=== PATIENT | male | born 1985 | race Asian ===

== ENCOUNTER 2020-09-05 06:03 | Day surgery (SDC) | payer OTHER ==
[~2020-09-05] VITALS: Ht 162.6 cm; Wt 74.1 kg
[2020-09-05] MEDS ORDERED: OXYMETAZOLINE 0.05% NASAL SPRAY (AFRIN) As Ordered ONE (07:07)
[2020-09-05] MEDS ORDERED: METHYLENE BLUE 0.5% (5MG/ML) 10 ML AMP (PROVAYBLUE) As Ordered ONE (07:07)
[2020-09-05] MEDS ORDERED: LIDOCAINE W/EPINEPHRINE 1% 20ML VIAL As Ordered ONE (07:07)
[2020-09-05] MEDS ORDERED: fentaNYL 100 MCG/2 ML INJECTION (J3010) As Ordered ONE ×2 (07:13→07:57)
[2020-09-05] MEDS ORDERED: propofoL 200 MG/20 ML VIAL As Ordered ONE ×2 (07:13→08:26)
[2020-09-05] MEDS ORDERED: MIDAZOLAM INJ 2MG/2ML VIAL (J2250 PER 1MG) As Ordered ONE (07:13)
[2020-09-05] MEDS ORDERED: LIDOCAINE 2% 100MG/5ML SDV (FOR ANES.) As Ordered ONE ×2 (07:13→07:14)
[2020-09-05] MEDS ORDERED: ROCURONIUM BROMIDE 50 MG/5 ML VIAL As Ordered ONE (07:13)
[2020-09-05] MEDS ORDERED: dexameTHASONE 4 MG/ML 1ML VIAL (J1100 PER 1MG) As Ordered ONE (07:14)
[2020-09-05] MEDS ORDERED: ONDANSETRON 4MG/2ML VIAL As Ordered ONE (07:14)
[2020-09-05] MEDS ORDERED: SUGAMMADEX SODIUM 500 MG/5 ML VIAL (BRIDION) As Ordered ONE (07:16)
[2020-09-05] MEDS ORDERED: PERCOCET PO (07:44)
[2020-09-05] MEDS ORDERED: DOXY-350 PO (07:44)
[2020-09-05] MEDS ORDERED: ACETAMINOPHEN 1000MG 100ML IV BTL (OFIRMEV) (J0131 PER 10MG) As Ordered ONE (08:17)
[2020-09-05] MEDS ORDERED: HYDROMORPHONE HCL 0.5 MG/ 0.5 ML SYRINGE (J1170 PER 1) IV PRN (09:00)
[2020-09-05] MEDS ORDERED: PERCOCET 5MG/325MG TAB PO PRN ×2 (09:00)
[2020-09-05] MEDS ORDERED: ONDANSETRON 4MG/2ML VIAL IV PRN (09:00)
[2020-09-05] MEDS ORDERED: LR 1,000 ML IV SCH (09:00)
[2020-09-05 10:35] VITALS: BP 130/78
--- NOTE | 2020-09-07 13:31 | RO ---
OPERATIVE NOTE DATE OF OPERATION: 09/05/2020 PREOPERATIVE DIAGNOSIS: Deviated septum, chronic rhinitis. POSTOPERATIVE DIAGNOSIS: Deviated septum, chronic rhinitis. PROCEDURE: Septoplasty and partial reduction of inferior turbinates. SURGEON: Roberto Mata MD. 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 DESCRIPTION OF PROCEDURE: Satisfactory general endotracheal anesthesia was administered. Pharyngeal pack placed. Nose prepared for surgery by placing cotton-soaked pledgets with Afrin solution into the nasal cavity bilaterally. One percent Xylocaine with 1:100,000 epinephrine was used to inject the nasal septum and inferior turbinates. A Erik incision was made on the left side of the nose. A mucoperichondrial flap and envelope was created on the left side of the nasal septum and carried down to the junction of the bony and cartilaginous septum. This was then with an elevator and an envelope was then created on the right side of the septum. Andrade scissors was used to make a high cut in the perpendicular plate in the midportion of the vomer and a central segment of bony septum was resected. Next, with the round knife on the Oliver elevator, a strip of cartilage was resected from the floor of the nose, mobilizing the quadrilateral cartilage and creating a swinging door. Then a central segment of cartilaginous septum was resected, preserving a 1 cm dorsal and caudal strut. Double-action rongeur was used to take down deflected portions of the perpendicular plate as well. Finally, the maxillary crest spur was taken down after elevating mucoperiosteum off both sides of it with a chisel. A segment of the resected cartilage was morselized and placed back into the septal envelope. The incision was closed using an interrupted 5-0 chromic suture. Then a 4-0 plain suture was placed in a [id number] fashion through the two leaves of the mucoperichondrium to appose them. Next the turbinate surgery was done. He had markedly hypertrophic turbinates. They were medially infractured and using the turbinate Coblator probe two parallel passes of the probe were made with 10 second coblation times for each of the set points on the probe. Finally suction cautery was used to coagulate the posterior inferior tip of the inferior turbinate. A #15 blade was used to make an incision on the anterior tip of the inferior turbinate. At completion of the surgery Michael splints were placed in nose and sewn to the columella with 2-0 Prolene suture. The pharyngeal pack was removed, throat suctioned. The patient was awakened and extubated. Sent to recovery in satisfactory condition. He will be discharged home on Tylox for pain and Doxycycline 100 mg b.i.d. He will be seen in the office in three days for splint removal.
== END 2020-09-05 10:35 | disposition home or self-care (01) ==
LOC: M SDC 06:03
PROVIDERS: ATTEND Specialist
DX: J34.2 Deviated nasal septum (principal); J31.0 Chronic rhinitis
CPT/HCPCS: 30140; 30520; 88300; J0131; J1100; J2250; J2405; J3010; Q9968

== ENCOUNTER → 2020-09-21 | Outpatient (CLI) | payer OTHER ==
[~2020-09-21] MED LIST: DOXY-350 PO; PERCOCET PO
--- NOTE | 2020-09-22 04:23 | REP ---
INDICATION: PAIN IN LEFT WRIST COMPARISON: None. TECHNIQUE: AP, lateral, bilateral oblique views left wrist. FINDINGS: Ulnar styloid fracture is identified but appears well corticated and may represent old injury. Clinical correlation is recommended. No prior examinations are available for comparison. The remainder of the examination appears normal. IMPRESSION: Ulnar styloid fracture of indeterminate age. Correlation is required. <Electronically signed by Candelario Mcpherson > 09/22/20 042
== END ==
LOC: M RAD 17:25
PROVIDERS: ATTEND Physician Assistant
DX: S52.612A Displaced fracture of left ulna styloid process, initial encounter for closed fracture (principal); X58.XXXA Exposure to other specified factors, initial encounter; Y92.9 Unspecified place or not applicable; Y93.9 Activity, unspecified; Y99.9 Unspecified external cause status

== ENCOUNTER 2020-09-28 12:22 | Inpatient (IN) | payer OTHER ==
[~2020-09-28] VITALS: Ht 162.6 cm; Wt 72.7 kg
[2020-09-28] MEDS ORDERED: ACET1TAB55 PO (12:44)
[2020-09-28] MEDS ORDERED: IBUP-1720 PO (12:44)
[2020-09-28] MEDS ORDERED: BENG1CRE3 TOP (12:44)
[2020-09-28 13:40] LABS: HEMATOCRIT 40.9 % (42.0-52.0); HEMOGLOBIN 13.2 g/dl (13.5-17.5); MEAN CORPUSCULAR HEMOGLOBIN 29.7 pg (27.0-33.0); MEAN CORPUSCULAR HGB CONC 32.3 g/dl (32.0-36.5); MEAN CORPUSCULAR VOLUME 91.9 fl (80.0-96.0); PLATELET COUNT, AUTOMATED 253 10^3/uL (150-450); RED BLOOD COUNT 4.45 10^6/uL (4.30-6.10); WHITE BLOOD COUNT 4.6 10^3/uL (4.0-10.0)
[2020-09-28 13:45] LABS: AMPHETAMINES LEVEL URINE NEGATIVE (NEGATIVE); BARBITURATES URINE NEGATIVE (NEGATIVE); BENZODIAZEPINES URINE NEGATIVE (NEGATIVE); CANNABINOIDS URINE NEGATIVE (NEGATIVE); COCAINE METABOLITE URINE NEGATIVE (NEGATIVE); METHADONE URINE NEGATIVE (NEGATIVE); OPIATES URINE NEGATIVE (NEGATIVE); PHENCYCLIDINE URINE NEGATIVE (NEGATIVE)
[2020-09-28 14:09] LABS: ACETAMINOPHEN LEVEL < 2.0 UG/ML (10.0-30.0); ALBUMIN 4.3 GM/DL (3.2-5.2); ALT/SGPT 33 U/L (12-78); BILIRUBIN,DIRECT 0.2 MG/DL (0.0-0.2); BILIRUBIN,TOTAL 0.8 MG/DL (0.2-1.0); BLOOD UREA NITROGEN 14 MG/DL (7-18); CALCIUM LEVEL 9.1 MG/DL (8.5-10.1); CARBON DIOXIDE LEVEL 29 MEQ/L (21-32); CHLORIDE LEVEL 106 MEQ/L (98-107); CREATININE FOR GFR 0.79 MG/DL (0.70-1.30); ETHYL ALCOHOL (ETHANOL) < 0.003 % (0.000-0.010); GLOMERULAR FILTRATION RATE > 60.0 (>60); GLUCOSE, FASTING 86 MG/DL (70-100); POTASSIUM SERUM 3.6 MEQ/L (3.5-5.1); SALICYLATE LEVEL < 1.7 MG/DL (5.0-30.0); SODIUM LEVEL 139 MEQ/L (136-145)
[2020-09-28] MEDS ORDERED: ACETAMINOPHEN TAB 650MG DOSE (2X325MG) PO PRN (18:20)
[2020-09-28] MEDS ORDERED: MAALOX 30 ML SUSP *UDC PO PRN (18:20)
[2020-09-28] MEDS ORDERED: MOM 30ML SUSPENSION UDC PO PRN (18:20)
[2020-09-28] MEDS ORDERED: LORazepam 1 MG TAB PO PRN (18:20)
[2020-09-28] MEDS ORDERED: traZODone 50 MG TAB PO PRN (18:20)
[2020-09-28 23:19] VITALS: BP 135/92
[2020-09-29 06:34] VITALS: BP 125/61
[2020-09-29] MEDS: NICOTINE 21MG/24HR 1 EA TRANSDERMAL TD SCH (09:00)
--- NOTE | 2020-09-29 09:37 | MHHPEPDOC ---
General Date Of Admission: September 28, 2020 Legal Status: 9.39 Chief Complaint My depression is getting worse and I feel totally useless, worthless and I was thinking about suicide ". History of Present Illness HISTORY OF THE PRESENT ILLNESS: Patient is a 35 -year-old , male, who [has no prior history of psychiatric treatment. 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 He was a stationed at [place] in February last year and his family joined him in March. He reports that he is been under increasing stress because of his being unhappy in this cold environment wants him to leave the service and move to the [facility]. The patient states that he likes the wants to make it a career, but at the same time he doesn't want to lose his . He is been feeling torn between and lately he has been feeling increasingly anxious with the vague fear and feeling hopeless, helpless and worthless. He has not been able to sleep very good and losing appetite.. 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 He is also losing appetite, losing concentrations and in the past month. He went to behavioral health unit and asked for help and had an appointment yesterday. When he went to the appointment and described his depression and occasional suicidal thought he was advised to come to the emergency room and was admitted on 939 status.]. The patient was fully cooperating with the interview, gave the rational presentation of his history and current problems and admits that he is feeling depressed ,at times feel like he should just go away, but knows that that he cannot leave his and his son. 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 He is tyrell for safety on the unit and is willing to cooperate with the treatment Psychiatric Review of Systems Depression (2 or more weeks): depressed mood, insomnia/hypersomnia, feelings of worthlesness, decreased energy, difficulty concentrating, appetite changes, suicidal thoughts Martha (4 or more days of): denies Psychosis: denies PTSD: denies Anxiety: situational anxiety Past Psychiatric History Previous Psychiatric Diagnosis: [None]. Previous Psychiatric Admissions: [Never been treated]. Suicide Attempts: [Never attempted suicide]. Psychiatric Follow-up: [Was recently referred to behavioral unit]. Psychiatric medications: None . Past Medical History Medical Problems Denies any major medical history Head Injury: No Seizures: No Hospitalizations: No Surgeries: No Family Medical/Psychiatric HX Medical Problems Patient to reports his mother had diabetes and hypertension Psychiatric Disorders: No Addiction: No Suicide Attemps/Completions: No Addiction History denies Social History Childhood: [Was born in [facility] had uneventful childhood ]. Abuse/Trauma:[None]. Current [place]: [place] Education: [Went to college in his country, and majored in Zoology]. Employment: Came to [facility] at age of 35 and worked at the [employer]]. Social Support: [Has a and 4-year-old. son living with him. Had to mother and father in their 50s living in [place] has 2 brothers there. Legal: [No arrest history]. Marital: for 4 years. Has a son and his wants to move out of this area and out of service . Mental Status Examination General Appearance: well groomed, appears stated age Build: average Demeanor: average Eye Contact: average Activity: average Behavior: cooperative Speech: clear, spontaneous, low in volume Mood: depressed, anxious Affect: constricted, appropriate Thought Process: logical/linear Thought Content (Delusions): none reported Thought Content (Other): none reported Thought Content (Aggressive): none reported Perception (Hallucinations): none reported Perception (Other): none reported Cognition (Impairment of): none reported Cognition(Intelligence Est.): average Oriented: Awake, Alert, Oriented times three Insight: fair Judgment: Fair Psychosis: Denies Diagnoses Adjustment disorder with mixed emotion , Rule out major depression, single episode, moderate A-FIB/CHADSVASC A-FIB History Current/History of A-Fib/PAF?: No Current PO Anticoag Therapy: No Age/Risk Factor Scoring CHADSVASC: CHADSVASC Response (Comments) Value Gender Risk Factor Male 0 Hx of CHF No 0 Hx of HTN No 0 Hx of Stroke/TIA/or VTE No 0 Hx of Diabetes No 0 Hx of Vascular Disease No 0 Total 0 Treatment Treatment ordered: NONE Assessment The patient is significantly depressed, but could be related to his conflict between his career and his marital situation. He does not appear to be acutely suicidal or but is showing significant depressive symptoms and could benefit from trial of antidepressant. It'll also be recommended that he has marital counseling after his discharge. Initial Treatment Plan 1. Patient was admitted on a 9.39 status. 2. Complete history was obtained. 3. With patients permission, family will be contacted and database will be expanded. 4. Patients medication regimen will be reviewed and changed accordingly. 5. Patient will be provided with protected environment. 6. Patient will be treated with individual, group, and milieu therapies. 7. Patient will receive supportive psych-education. 8. Discharge planning will commence immediately. 9. Outpatient follow-up treatment will be strongly recommended. 10. The initial treatment plan will focus initially on: * Depression. * Risk for suicide. ESTIMATED LENGTH OF STAY: 5-7 DAYS. TIME SPENT COUNSELING AND COORDINATING INITIAL CARE: 40 minutes. Tobacco Cessation Screen If Patient is a Smoker Nonsmoker N/A-No Antipsychotics Vital Signs Vital Signs Date Time Temp Pulse Resp B/P (MAP) Pulse Ox O2 Delivery O2 Flow Rate FiO2 09/29/20 06:34 98.0 61 16 125/61 (82) 99 Room Air Laboratory Data 24H Labs Laboratory Tests 2 09/28/20 12:51: Nucleated Red Blood Cells % (auto) 0.0, Anion Gap 4L, Glomerular Filtration Rate > 60.0, Calcium Level 9.1, Total Bilirubin 0.8, Direct Bilirubin 0.2, Aspartate Amino Transf (AST/SGOT) 19, Alanine Aminotransferase (ALT/SGPT) 33, Alkaline Phosphatase 87, Total Protein 8.0, Albumin 4.3, Albumin/Globulin Ratio 1.2, Thyroid Stimulating Hormone (TSH) 1.060, Salicylates Level < 1.7L, Acetaminophen Level < 2.0L, Ethyl Alcohol Level < 0.003 09/28/20 12:58: Urine Opiates Screen NEGATIVE, Urine Methadone Screen NEGATIVE, Urine Barbiturates Screen NEGATIVE, Urine Phencyclidine Screen NEGATIVE, Urine Amphetamines Screen NEGATIVE, Urine Benzodiazepines Screen NEGATIVE, Urine Cocaine Metabolite Screen NEGATIVE, Urine Cannabinoids Screen NEGATIVE CBC/BMP Laboratory Tests 09/28/20 12:51 Medications Scheduled PRN Acetaminophen (Acetaminophen) 325 Mg Tablet, 325 MG PO QID PRN for PAIN, (Reported) Ibuprofen (Ibuprofen) 200 Mg Tablet, 200 MG PO QID PRN for PAIN, (Reported) Methyl Salicylate/Menthol (Bengay Greaseless Cream) 57 Gm Cream..g., 1 DOSE TOP QID PRN for PAIN, (Reported) APPLY TO LEFT KNEE, LEFT ANKLE, LEFT WRIST, AND RIGHT SHOULDER Allergies Coded Allergies: No Known Allergies (Unverified , 08/30/20) FIDE BULLOCK M.D. September 29, 2020 09:37
[2020-09-29] MEDS: buPROPion (WELLBUTRIN SR) 100 MG SR TAB PO SCH ×2 (10:18→21:28)
--- NOTE | 2020-09-29 12:31 | HPEPDOC ---
[facility] Medical History & Physical Date of Admission September 28, 2020 Date of Service: September 29, 2020 History and Physical CHIEF COMPLAINT: Medical evaluation HISTORY OF PRESENT ILLNESS: Patient admitted to the inpatient mental health unit for depression and suicidal ideations. I am asked to provide a medical assessment of patient admitted to the psychiatric unit. My assessment is limited to medical problems and does not add ress any psychiatric problems which is deferred to the in-house psychiatrist. Patient has no medical complaints feels well, no complaints at this time. 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 REVIEW OF SYSTEMS: 10 point review of systems complete all negative otherwise stated in HPI HOME MEDICATIONS: Please see below. PHYSICAL EXAMINATION: Constitutional: Awake and alert, in no apparent distress ENT: Sclera are clear. Mucosa is moist. Respiratory: Lungs CTA bilaterally. No respiratory distress. Cardiovascular: RRR S1 and S2 are normal, no murmur Gastrointestinal: Abdomen is soft, non distended, non tender, BS present. Musculoskeletal: No lower extremity edema. Neurologic: No focal neurological deficit. Mental Status: A&O x3 Skin: Warm, dry LABORATORY DATA: See below. IMAGING: See chart MICROBIOLOGY: Please see below. ASSESSMENT/PLAN Medical evaluation for patient admitted to inpatient mental health unit. Patient is doing well and has no active medical problems. Follow-up with PCP after discharge. Follow-up with recommendations and management from psychiatry. A Yousef Hospitalist Vital Signs Vital Signs Date Time Temp Pulse Resp B/P (MAP) Pulse Ox O2 Delivery O2 Flow Rate FiO2 09/29/20 06:34 98.0 61 16 125/61 (82) 99 Room Air Laboratory Data Labs 24H Laboratory Tests 2 09/28/20 12:51: Nucleated Red Blood Cells % (auto) 0.0, Anion Gap 4L, Glomerular Filtration Rate > 60.0, Calcium Level 9.1, Total Bilirubin 0.8, Direct Bilirubin 0.2, Aspartate Amino Transf (AST/SGOT) 19, Alanine Aminotransferase (ALT/SGPT) 33, Alkaline Phosphatase 87, Total Protein 8.0, Albumin 4.3, Albumin/Globulin Ratio 1.2, Thyroid Stimulating Hormone (TSH) 1.060, Salicylates Level < 1.7L, Acetaminophen Level < 2.0L, Ethyl Alcohol Level < 0.003 09/28/20 12:58: Urine Opiates Screen NEGATIVE, Urine Methadone Screen NEGATIVE, Urine Barbiturates Screen NEGATIVE, Urine Phencyclidine Screen NEGATIVE, Urine Amphetamines Screen NEGATIVE, Urine Benzodiazepines Screen NEGATIVE, Urine Cocaine Metabolite Screen NEGATIVE, Urine Cannabinoids Screen NEGATIVE CBC/BMP Laboratory Tests 09/28/20 12:51 Microbiology Microbiology 09/28/20 Respiratory Virus Panel (PCR) ([facility]) - Final, Complete Home Medications Scheduled PRN Acetaminophen (Acetaminophen) 325 Mg Tablet, 325 MG PO QID PRN for PAIN Ibuprofen (Ibuprofen) 200 Mg Tablet, 200 MG PO QID PRN for PAIN Methyl Salicylate/Menthol (Bengay Greaseless Cream) 57 Gm Cream..g., 1 DOSE TOP QID PRN for PAIN APPLY TO LEFT KNEE, LEFT ANKLE, LEFT WRIST, AND RIGHT SHOULDER Allergies Coded Allergies: No Known Allergies (Unverified , 08/30/20) A-FIB/CHADSVASC A-FIB History Current/History of A-Fib/PAF?: No Age/Risk Factor Scoring CHADSVASC: CHADSVASC Response (Comments) Value Gender Risk Factor Male 0 Hx of CHF No 0 Hx of HTN No 0 Hx of Stroke/TIA/or VTE No 0 Hx of Diabetes No 0 Hx of Vascular Disease No 0 Total 0 THERON PONCE MD September 29, 2020 12:31
[2020-09-29 16:02] VITALS: BP 121/88
[2020-09-30 06:11] VITALS: BP 103/69
[2020-09-30] MEDS: buPROPion (WELLBUTRIN SR) 100 MG SR TAB PO SCH ×2 (08:53→20:26)
[2020-09-30] MEDS: NICOTINE 21MG/24HR 1 EA TRANSDERMAL TD SCH (08:54)
--- NOTE | 2020-09-30 09:07 | MHIPNPDOC ---
[facility] Progress Note Progress Note DATE OF SERVICE: 09/30/20 The patient is cooperating and tolerating the new medicine. Wellbutrin. He denies any increased anxiety and slept without much difficulty and does not feel any side effect. He reports his mood is okay and not feeling as hopeless, helpless and denies any active suicidal thoughts. 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 We will continue with is the Wellbutrin and supportive therapy and evaluate the lethality issues. HISTORY: . VITAL SIGNS: See below. NEW TEST RESULTS: . CURRENT MEDICATIONS: See below. MENTAL STATUS EXAMINATION: Patient is a 35]-year old male, who is , cooperative and in no acute distress. Speech: Is , coherent, productive. Language skills are good. Thought processes including: Relevant and organized. Thought content: . No gross psychotic symptoms and he denies any active suicidal thoughts. Abstract reasoning, and computation: Good. Description of associations : Organized. Description of abnormal or psychotic thoughts: None. Judgment: , Fair. Insight: , Fair. Orientation: Well oriented]. Recent and remote memory: Good. Attention span and concentration: Good. Language: . Fund of knowledge: Average. Mood: Moderately depressed. Affect: , Appropriate. DIAGNOSES: 1. . Major depressive episode 2. . 3. . ASSESSMENT:Cooperating and tolerating medicine does not appear to be acutely suicidal MANAGEMENT PLAN: , Supportive therapy and lethality evaluation. TIME SPENT: [[place] minutes. Vital Signs Vital Signs Date Time Temp Pulse Resp B/P (MAP) Pulse Ox O2 Delivery O2 Flow Rate FiO2 09/30/20 06:11 97.8 60 16 103/69 (80) 98 Room Air Current Medications Current Medications Medications (Trade) Dose Ordered Sig/Anca Route PRN Reason Start Time Stop Time Status Last Admin Dose Admin Acetaminophen (Tylenol Tab) 650 mg Q6HP PRN PO HEADACHE or DISCOMFORT 09/28/20 18:20 Al Hydrox/Mg Hydrox/Simethicone (Mylanta) 30 ml Q4HP PRN PO HEARTBURN/INDIGESTION 09/28/20 18:20 Bupropion HCl (Wellbutrin Sr) 100 mg BID PO 09/29/20 09:00 09/29/20 21:28 Home Med (Med Rec Complete!) ASDIRECTED XX 09/28/20 15:45 09/28/20 15:47 DC Lorazepam (Ativan) 1 mg Q4HP PRN PO ANXIETY 09/28/20 18:20 Magnesium Hydroxide (Milk Of Magnesia) 30 ml DAILYPRN PRN PO CONSTIPATION 09/28/20 18:20 Nicotine (Nicoderm Cq 21mg) 1 patch DAILY TD 09/29/20 09:00 Trazodone HCl (Desyrel) 50 mg QHSP PRN PO INSOMNIA 09/28/20 18:20 Allergies Coded Allergies: No Known Allergies (Unverified , 08/30/20) FIDE BULLOCK M.D. September 30, 2020 09:07
[2020-09-30 18:22] VITALS: BP 129/80
[2020-10-01 06:33] VITALS: BP 122/73
[2020-10-01] MEDS: buPROPion (WELLBUTRIN SR) 100 MG SR TAB PO SCH ×2 (08:20→20:08)
[2020-10-01] MEDS: NICOTINE 21MG/24HR 1 EA TRANSDERMAL TD SCH (09:00)
[2020-10-01 16:45] VITALS: BP 117/78
--- NOTE | 2020-10-01 18:30 | MHIPN ---
[facility], [facility] PROGRESS NOTE DATE: 10/01/2020 The patient today states that he slept good. He says he is not feeling depressed, not suicidal. 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 MENTAL STATUS EXAMINATION: This patient is alert and oriented times three. he was pleasant and cooperative, verbally spontaneous. It was a little difficult to understand him fully, because he does have some difficulty with language, but with prompts for him to repeat his answers, I was able to understand him fairly well. There was no formal thought disorder noted. He says his mood is better. Affect is appropriate to his mood. He is not psychotic, suicidal, homicidal. Concentration is fair, memory intact. Insight and judgment are fair. DIAGNOSIS: Major depressive disorder. TREATMENT PLAN: We will continue to monitor the patient for continued elevation and stabilization of his mood and continued resolution of his suicidal ideation.
[2020-10-02 06:35] VITALS: BP 113/71
[2020-10-02] MEDS: buPROPion (WELLBUTRIN SR) 100 MG SR TAB PO SCH ×2 (08:21→20:43)
[2020-10-02] MEDS: NICOTINE 21MG/24HR 1 EA TRANSDERMAL TD SCH (08:22)
[2020-10-02 18:03] VITALS: BP 115/71
[2020-10-03 07:02] VITALS: BP 111/69
[2020-10-03] MEDS: buPROPion (WELLBUTRIN SR) 100 MG SR TAB PO SCH ×2 (08:07→20:46)
[2020-10-03] MEDS: NICOTINE 21MG/24HR 1 EA TRANSDERMAL TD SCH (08:08)
--- NOTE | 2020-10-03 11:45 | MHIPNPDOC ---
[facility] Progress Note Progress Note DATE OF SERVICE: 10/03/20 The patient reports that he is not feeling as anxious and not as depressed. He is tolerating Wellbutrin without any side effec and reports feeling more positiv e and hopeful. He is smiling easily and spontaneous and very appropriate and denies any suicidal thoughts and feeling thankful for the treatment HISTORY: . VITAL SIGNS: See below. NEW TEST RESULTS: . CURRENT MEDICATIONS: See below. MENTAL STATUS EXAMINATION: Patient is a 40-year old male, who is , pleasant and cooperative. Speech: Is clear, rational. Language skills are good. Thought processes including: , Well organized. Thought content: No suicidal ideas. Abstract reasoning, and computation: Good. Description of associations: Well organized . Description of abnormal or psychotic thoughts: None Judgment: Fair. Insight: Fair. Orientation: , Well oriented. Recent and remote memory: Good. Attention span and concentration: Good. Language: . Fund of knowledge: Average. Mood: Feeling more hopeful, not depressed. Affect: Bright, appropriate. DIAGNOSES: 1. . Depressive disorder 2. ]. 3. . ASSESSMENT:[Showing improvement] MANAGEMENT PLAN: [Continuing the current medicine]. TIME SPENT: [20] minutes. Vital Signs Vital Signs Date Time Temp Pulse Resp B/P (MAP) Pulse Ox O2 Delivery O2 Flow Rate FiO2 10/03/20 07:02 98.1 58 20 111/69 (83) 97 Room Air Current Medications Current Medications Medications (Trade) Dose Ordered Sig/Anca Route PRN Reason Start Time Stop Time Status Last Admin Dose Admin Acetaminophen (Tylenol Tab) 650 mg Q6HP PRN PO HEADACHE or DISCOMFORT 09/28/20 18:20 Al Hydrox/Mg Hydrox/Simethicone (Mylanta) 30 ml Q4HP PRN PO HEARTBURN/INDIGESTION 09/28/20 18:20 Bupropion HCl (Wellbutrin Sr) 100 mg BID PO 09/29/20 09:00 10/03/20 08:07 Home Med (Med Rec Complete!) ASDIRECTED XX 09/28/20 15:45 09/28/20 15:47 DC Lorazepam (Ativan) 1 mg Q4HP PRN PO ANXIETY 09/28/20 18:20 Magnesium Hydroxide (Milk Of Magnesia) 30 ml DAILYPRN PRN PO CONSTIPATION 09/28/20 18:20 Nicotine (Nicoderm Cq 21mg) 1 patch DAILY TD 09/29/20 09:00 Trazodone HCl (Desyrel) 50 mg QHSP PRN PO INSOMNIA 09/28/20 18:20 Allergies Coded Allergies: No Known Allergies (Unverified , 08/30/20) FIDE BULLOCK M.D. October 03, 2020 11:45
--- NOTE | 2020-10-03 12:32 | MHIPN ---
[facility] PSYCHIATRIC PROGRESS NOTE DATE OF SERVICE: 10/02/2020 HISTORY OF PRESENT ILLNESS: The patient today tells me that he is doing "great." He says he slept well and has no complaints. MENTAL STATUS EXAM: This patient is alert and oriented times 3, pleasant and cooperative, verbally spontaneous. Eye contact is good. There is no formal thought disorder noted. Mood is "great." Affect appropriate. Patient is not psychotic, suicidal or homicidal. Concentration is fair. Memory intact. Insight and judgment is fair. DIAGNOSIS: Major depression disorder. TREATMENT PLAN: We will continue to monitor the patient for continued elevation and stabilization of his mood and continued resolution of suicidal ideation.
[2020-10-03 18:49] VITALS: BP 138/58
[2020-10-04 06:31] VITALS: BP 112/62
[2020-10-04] MEDS ORDERED: BUPR10TASR PO (07:43)
[2020-10-04] MEDS: buPROPion (WELLBUTRIN SR) 100 MG SR TAB PO SCH (08:20)
--- NOTE | 2020-10-04 10:45 | MHDSPDOC ---
[facility] Discharge Summary Discharge Summary DATE OF ADMISSION: September 28, 2020 at 18:20 DATE OF DISCHARGE: 10/04/2020 DISCHARGE DIAGNOSES: 1. . Depressive disorder, NOS 2. . REASON FOR ADMISSION: 37-year-old born, man with no previous psychiatric history admitted to due to increasing depression and vague suicidal thoughts. 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 He reported that moderate anxiety with feeling worthless and had vague suicidal thoughts. He was treated with supportive therapy and given Wellbutrin 100 mg twice a day and patient showed steady and significant improvement.. HOSPITAL COURSE: . He reports marked reduction in his anxiety and is feeling much more hopeful, especially after his agreed to have him stay in the service and pursue his career. 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 He maintained good control, showed no dangerous behavior and does not appear to be suicidal at all. DISCHARGE ASSESSMENT: Much improved and stable and not suicidal MENTAL STATUS EXAMINATION ON DISCHARGE: Patient is a 37-year old male, who is smiling and appropriate and pleasant. Speech is rational, coherent. Language skills are good. Thought processes including: , Goal directed. Thought content: More serious depression and no suicidal thoughts. Abstract reasoning, and computation: Good. Description of associations: Well-organized. Description of abnormal or psychotic thoughts: None. Judgment: , Fair. Insight: Good. Orientation to , oriented. Recent and remote memory: Good. Attention span and concentration: Good . Language: . Fund of knowledge: Average. Mood: Euthymic . Affect: , Bright and appropriate. MEDICATIONS ON DISCHARGE: - , Wellbutrin 100 mg twice a day for 7 days with 3 refills. - for . - for . PLAN/FOLLOWUP ARRANGEMENTS: Arranged by the office workforce planner. The amount of time spent in the coordination of care for this patient was approximately 40 minutes. ETOH/Disorder Med Rx ETOH/DRUG DISORDER RX: N/A Vital Signs/I&Os Vital Signs Date Time Temp Pulse Resp B/P (MAP) Pulse Ox O2 Delivery O2 Flow Rate FiO2 10/04/20 06:31 98.9 66 16 112/62 (79) 97 Room Air Laboratory Data Microbiology Microbiology 09/28/20 Respiratory Virus Panel (PCR) ([facility]ERTO) - Final, Complete Medications Scheduled Bupropion Hcl (Bupropion HCl Sr) 100 Mg Tab.sr.12h, 100 MG PO BID for depression for 7 Days, #14 Scheduled PRN Methyl Salicylate/Menthol (Bengay Greaseless Cream) 57 Gm Cream..g., 1 DOSE TOP QID PRN for PAIN, (Reported) APPLY TO LEFT KNEE, LEFT ANKLE, LEFT WRIST, AND RIGHT SHOULDER Allergies Coded Allergies: No Known Allergies (Unverified , 08/30/20) FIDE BULLOCK M.D. October 04, 2020 10:45
== END 2020-10-04 11:33 | disposition home or self-care (01) | DRG 882 ==
LOC: M ED 12:22 → M ED INP 18:20 → M PSY 22:55
PROVIDERS: ADMIT Psychiatry & Neurology Psychiatry; ATTEND Psychiatry & Neurology Psychiatry
DX: F43.25 Adjustment disorder with mixed disturbance of emotions and conduct (principal); F32.1 Major depressive disorder, single episode, moderate; R45.851 Suicidal ideations; F17.210 Nicotine dependence, cigarettes, uncomplicated; Z63.0 Problems in relationship with spouse or partner; Z20.822 Contact with and (suspected) exposure to COVID-19

== ENCOUNTER → 2020-10-31 | Outpatient (CLI) | payer OTHER ==
[~2020-10-31] MED LIST changes: +ACET1TAB55 PO; +BENG1CRE3 TOP; +BUPR10TASR PO; +IBUP-1720 PO
[2020-10-31 14:45] LABS: ALBUMIN 4.2 GM/DL (3.2-5.2); ALT/SGPT 31 U/L (12-78); BILIRUBIN,TOTAL 0.7 MG/DL (0.2-1.0); BLOOD UREA NITROGEN 20 MG/DL (7-18); CALCIUM LEVEL 9.1 MG/DL (8.5-10.1); CARBON DIOXIDE LEVEL 30 MEQ/L (21-32); CHLORIDE LEVEL 105 MEQ/L (98-107); CREATININE FOR GFR 0.88 MG/DL (0.70-1.30); GLOMERULAR FILTRATION RATE > 60.0 (>60); GLUCOSE, FASTING 64 MG/DL (70-100); SODIUM LEVEL 139 MEQ/L (136-145); TOTAL PROTEIN 7.8 GM/DL (6.4-8.2)
[2020-10-31 14:58] LABS: BASO % 0.2 % (0.0-1.0); EOS # 0.2 10^3/uL (0.0-0.5); EOS % 3.7 % (0.0-3.0); HEMATOCRIT 40.6 % (42.0-52.0); HEMOGLOBIN 13.3 g/dl (13.5-17.5); LYMPH # 2.2 10^3/uL (1.5-5.0); LYMPH % 45.2 % (24.0-44.0); MEAN CORPUSCULAR HGB CONC 32.8 g/dl (32.0-36.5); MEAN CORPUSCULAR VOLUME 91.6 fl (80.0-96.0); MONO # 0.5 10^3/uL (0.0-0.8); NEUTROPHILS # 1.9 10^3/uL (1.5-8.5); NEUTROPHILS % 39.7 % (36.0-66.0); PLATELET COUNT, AUTOMATED 274 10^3/uL (150-450); RED BLOOD COUNT 4.43 10^6/uL (4.30-6.10); WHITE BLOOD COUNT 4.8 10^3/uL (4.0-10.0)
[2020-11-01 17:12] LABS: Lyme Disease IgG/IgM Antibodie <0.91 ISR (0.00-0.90); Lyme Disease IgM Ab Quantitati <0.80 index (0.00-0.79)
== END ==
LOC: M WUC 11:55
PROVIDERS: ATTEND Physician Assistant
DX: R51.9 Headache, unspecified (principal)

== ENCOUNTER → 2020-12-26 | Outpatient (CLI) | payer OTHER ==
--- NOTE | 2020-12-26 11:14 | REPVR ---
PROCEDURE INFORMATION: Exam: CT Maxillofacial Without Contrast Exam date and time: 12/26/2020 10:52 AM Age: 35 years old Clinical indication: Sinusitis; Acute TECHNIQUE: Imaging protocol: Computed tomography images of the face without contrast. Radiation optimization: All CT scans at this facility use at least one of these dose optimization techniques: automated exposure control; mA and/or kV adjustment per patient size (includes targeted exams where dose is matched to clinical indication); or iterative reconstruction. COMPARISON: No relevant prior studies available. FINDINGS: Orbital cavity: Orbits are normal. Globes are unremarkable. Bones/joints: No acute fracture. Paranasal sinuses: Mild mucosal thickening is seen in bilateral maxillary, ethmoid and frontal sinuses. The sphenoid sinuses are clear. The nasal septum is in the midline. The ostiomeatal complexes are patent but with mild mucosal thickening. No air-fluid levels are seen in the paranasal sinuses. Soft tissues: Unremarkable. IMPRESSION: Mild mucosal thickening is seen in bilateral maxillary, ethmoid and frontal sinuses. The sphenoid sinuses are clear. The nasal septum is in the midline. The ostiomeatal complexes are patent but with mild mucosal thickening. No air-fluid levels are seen in the paranasal sinuses. Electronically signed by: Cortez Lundberg On 12/26/2020 11:13:40 AM
== END ==
LOC: M RAD 10:28
PROVIDERS: ATTEND Specialist
DX: J01.20 Acute ethmoidal sinusitis, unspecified (principal)